=== PATIENT | female | born 1940 | race Caucasian/White ===

== ENCOUNTER 2021-08-07 10:05 | Outpatient (CLI) | payer MEDICAID, OTHER ==
--- NOTE | 2021-08-07 14:33 | XRAY Report ---
PROCEDURE: Lumbar Spine 2 View INDICATIONS: LOW BACK PAIN TECHNIQUE: 2 views of the lumbar spine were acquired. COMPARISON: None. FINDINGS: Bones: 5 [id number] vertebrae are present. There is trace retrolisthesis of L1 on L2, L2 on L3 , trace anterolisthesis of L4 on L5. Multilevel moderate to severe disc space narrowing is present. T here is severe foraminal narrowing at L2-3, L3-4 and L5-S1, moderate L4-5. Multilevel anterior osteop hytes are present. No vertebral body compression fractures. No suspicious bony lesions. Soft tissues: Overlying bowel gas pattern is normal. No suspicious soft tissue calcifications. IMPRESSION: Prominent multilevel degenerative changes as above. Reviewed by: Fela White MD on 08/07/2021 2:31 PM PDT Approved by: Fela White MD on 08/07/2021 2:31 PM PDT Station ID: [id number]
== END 2021-08-07 10:06 | disposition home or self-care (01) ==
LOC: DI.N 10:05
PROVIDERS: ATTEND Nurse Practitioner
DX: M47.816 Spondylosis without myelopathy or radiculopathy, lumbar region (principal)

== ENCOUNTER 2022-06-16 12:01 | Outpatient (CLI) | payer MEDICARE ==
[2022-06-16 18:13] LABS: BASOPHILS # (AUTO) 0.1 10^3/uL (0.0-0.1); BASOPHILS % (AUTO) 0.8 %; EOSINOPHILS # (AUTO) 0.2 10^3/uL (0.0-0.7); EOSINOPHILS % (AUTO) 1.9 %; HCT - HEMATOCRIT 40.5 % (37.0-47.0); HGB - HEMOGLOBIN 12.4 g/dL (12.0-16.0); LYMPHOCYTES # (AUTO) 2.9 10^3/uL (1.5-3.5); LYMPHOCYTES % (AUTO) 34.3 %; MEAN CORPUSCULAR HGB CONC 30.6 g/dL (32.0-36.0); MEAN CORPUSCULAR VOLUME 88.2 fL (81.0-99.0); MEAN PLATELET VOLUME 10.7 fL (7.9-10.8); MONOCYTES # (AUTO) 0.7 10^3/uL (0.0-1.0); NEUTROPHILS # (AUTO) 4.6 10^3/uL (1.5-6.6); NEUTROPHILS % (AUTO) 54.8 %; PLT - PLATELET COUNT 311 10^3/uL (130-450); RED BLOOD COUNT 4.59 10^6/uL (4.20-5.40); RED CELL DISTRIBUTION WIDTH 16.4 % (12.0-15.0); WHITE BLOOD COUNT 8.4 x10^3/uL (4.8-10.8)
[2022-06-16 18:31] LABS: ALBUMIN 3.4 g/dL (3.2-5.5); ALKALINE PHOSPHATASE 90 IU/L (42-121); ALT ALANINE AMINOTRANSFERASE 14 IU/L (10-60); AST ASPARTATE AMINOTRANSFERASE 19 IU/L (10-42); BILIRUBIN,TOTAL 0.7 mg/dL (0.2-1.0); BUN - BLOOD UREA NITROGEN 27 mg/dL (6-20); CALCIUM 9.1 mg/dL (8.5-10.3); CARBON DIOXIDE - CO2 28 mmol/L (21-32); CHLORIDE 106 mmol/L (101-111); CHOL/HDL RATIO 2.3 (<4.4); CHOLESTEROL 123 mg/dL; CREATININE 1.5 mg/dL (0.4-1.0); GFR - MDRD 33 (>89); GLUCOSE 131 mg/dL (70-100); HDL CHOLESTEROL 53 mg/dL; LDL CHOLESTEROL,CALCULATED 61 mg/dL; LDL/HDL RATIO 1.2 (<4.4); SODIUM 139 mmol/L (135-145); TOTAL PROTEIN 6.9 g/dL (6.7-8.2); TRIGLYCERIDES 47 mg/dL; VLDL CHOLESTEROL 9 mg/dL
[2022-06-16 18:43] LABS: THYROID STIMULATING HORMONE 2.45 uIU/mL (0.34-5.60)
== END 2022-06-16 12:02 | disposition home or self-care (01) ==
LOC: LAB.N 12:01
PROVIDERS: ATTEND Nurse Practitioner
DX: I10 Essential (primary) hypertension (principal); E78.5 Hyperlipidemia, unspecified; R06.02 Shortness of breath; I48.21 Permanent atrial fibrillation
CPT/HCPCS: 36415; 80053; 80061; 83721; 83880; 84443; 85025

== ENCOUNTER 2022-07-14 08:02 | Emergency (ER) | payer MEDICARE ==
[2022-07-14 08:47] LABS: BASOPHILS # (AUTO) 0.1 10^3/uL (0.0-0.1); BASOPHILS % (AUTO) 1.5 %; EOSINOPHILS # (AUTO) 0.2 10^3/uL (0.0-0.7); EOSINOPHILS % (AUTO) 3.9 %; HCT - HEMATOCRIT 38.8 % (37.0-47.0); HGB - HEMOGLOBIN 11.7 g/dL (12.0-16.0); LYMPHOCYTES % (AUTO) 36.7 %; MEAN CORPUSCULAR HEMOGLOBIN 26.5 pg (27.0-31.0); MEAN CORPUSCULAR HGB CONC 30.2 g/dL (32.0-36.0); MEAN CORPUSCULAR VOLUME 87.8 fL (81.0-99.0); MEAN PLATELET VOLUME 10.3 fL (7.9-10.8); MONOCYTES # (AUTO) 0.4 10^3/uL (0.0-1.0); MONOCYTES % (AUTO) 7.5 %; NEUTROPHILS # (AUTO) 2.7 10^3/uL (1.5-6.6); PLT - PLATELET COUNT 256 10^3/uL (130-450); RED BLOOD COUNT 4.42 10^6/uL (4.20-5.40); RED CELL DISTRIBUTION WIDTH 15.6 % (12.0-15.0); WHITE BLOOD COUNT 5.3 x10^3/uL (4.8-10.8)
[2022-07-14 09:08] LABS: ALBUMIN 3.2 g/dL (3.2-5.5); ALBUMIN/GLOBULIN RATIO 1.1 (1.0-2.2); BILIRUBIN,TOTAL 0.8 mg/dL (0.2-1.0); CALCIUM 8.8 mg/dL (8.5-10.3); CREATININE 1.1 mg/dL (0.4-1.0); POTASSIUM 3.9 mmol/L (3.5-5.0); TOTAL PROTEIN 6.2 g/dL (6.7-8.2)
--- NOTE | 2022-07-14 09:12 | ED Physician Documentation ---
PD HPI CHEST PAIN - Stated complaint Stated Complaint: LT SIDE PX - Chief complaint Chief Complaint: Cardiac - History obtained from History obtained from: Patient, Family - Additional information Additional information: The patient comes to the emergency department chief complaint of pain under her left breast for about 4 days. She states that it happened when she reached down to get a bone for her dog. She is felt a sudden pop under her left breast and an electrical sensation that shot around her left rib cage. She states has been sore ever since and seem to be getting better but was worse today. She states it hurts to take a deep breath and sometimes the pain makes it makes her catch her breath. She has not been sick with anything. No cough, fevers, or chills. She has a history of congestive heart failure and had an echo a few years ago which showed an EF of 45%. She has had fluctuating edema in her lower extremities. No other complaints at this time. No coronary artery disease. PD PAST MEDICAL HISTORY - Past Medical History Past Medical History: Yes Cardiovascular: Congestive heart failure, Hypertension, High cholesterol, Atrial fibrillation, Arrhythmia - Past Surgical History Past Surgical History: No - Present Medications Home Medications: Ambulatory Orders Medication Instructions Recorded Confirmed Apixaban [Eliquis] 5 mg PO DAILY 07/14/22 07/14/22 Atorvastatin Calcium 40 mg PO DAILY 07/14/22 07/14/22 Escitalopram Oxalate 20 mg PO DAILY 07/14/22 07/14/22 Metoprolol Succinate 100 mg PO DAILY 07/14/22 07/14/22 Potassium Chloride [Klor-Con 10] 10 meq PO DAILY 07/14/22 07/14/22 lisinopriL [Zestril] 5 mg PO DAILY 07/14/22 07/14/22 - Allergies Allergies/Adverse Reactions: Allergies Allergy/AdvReac Type Severity Reaction Status Date / Time inositol niacinate AdvReac Rash Verified 07/14/22 08:24 [From Niacin No Flush] niacin [From Niacin No Flush] AdvReac Rash Verified 07/14/22 08:24 - Social History Does the pt smoke?: No Smoking Status: Never smoker Does the pt drink ETOH?: No PD ED PE NORMAL - Vitals Vital signs reviewed: Yes - General General: Alert and oriented X 3, No acute distress, Well developed/nourished - HEENT HEENT: Atraumatic, PERRL, EOMI, Moist mucous membranes - Neck Neck: Supple, no meningeal sign - Cardiac Cardiac: RRR, No murmur, Strong equal pulses - Respiratory Respiratory: No respiratory distress, Clear bilaterally, Other (Reproducible chest wall tenderness around the mid clavicular line seventh rib area under her left breast. No deformity, step-off, or crepitus) - Abdomen Abdomen: Soft, Non tender, Non distended - Derm Derm: Warm and dry - Extremities Extremities: No deformity, No edema (Moderate bilateral lower extremity edema) - Neuro Neuro: Alert and oriented X 3 - Psych Psych: Normal mood, Normal affect Results - Vitals Vitals: Vital Signs - 24 hr 07/14/22 07/14/22 08:10 08:49 Temperature 36.6 C Heart Rate 90 89 Respiratory 20 18 Rate Blood Pressure 157/117 H 129/73 O2 Saturation 99 97 Oxygen O2 Source Room air - Labs Labs: Laboratory Tests 07/14/22 07/14/22 07/14/22 08:39 08:39 08:39 WBC 5.3 RBC 4.42 Hgb 11.7 L Hct 38.8 MCV 87.8 MCH 26.5 L MCHC 30.2 L RDW 15.6 H Plt Count 256 MPV 10.3 Neut # (Auto) 2.7 Lymph # (Auto) 2.0 [place] # (Auto) 0.4 Eos # (Auto) 0.2 Baso # (Auto) 0.1 Absolute Nucleated RBC 0.00 Nucleated RBC % 0.0 Sodium 141 Potassium 3.9 Chloride 105 Carbon Dioxide 27 Anion Gap 9.0 BUN 19 Creatinine 1.1 H Estimated GFR (MDRD) 48 L Glucose 125 H Calcium 8.8 Total Bilirubin 0.8 AST 16 ALT 11 Alkaline Phosphatase 81 Troponin I High Sens 6.9 Total Protein 6.2 L Albumin 3.2 Globulin 3.0 Albumin/Globulin Ratio 1.1 Lipase 31 - Rads (name of study) Chest x-ray Relevant Findings:: Final report received, See rad report (Some cardiomegaly, no pulmonary edema) PD Medical Decision Making - ED course Complexity details: reviewed results, re-evaluated patient, considered differential, d/w patient, d/w family ED course: The patient was worked up with laboratory studies including CBC and ER abdominal panel with troponin, which were ordered and reviewed by me and found to be negative. EKG was ordered and reviewed by me and unremarkable. Her chest x-ray was read by the radiologist and she was found of some cardiomegaly but no pulmonary edema. I felt the patient was stable for discharge home. I discussed with her that she is most likely strained her chest wall and that this will get better on its own. We discussed the usual indications for return. The patient is accompanied by her son. Departure - Departure Disposition: Home, Self Care Clinical Impression: Strain of chest wall Qualifiers: Encounter type: initial encounter Qualified Code(s): S29.011A - Strain of muscle and tendon of front wall of thorax, initial encounter Condition: Stable Instructions: ED Strain Chest Wall Comments: Your labs, EKG, and chest x-ray all look good. There is no evidence of a rib fracture, heart attack, or exacerbation of your congestive heart failure. You may take ibuprofen and Tylenol if needed for the chest wall pain. You may also apply ice and heat as needed. This will get better on its own in the next few weeks.
--- NOTE | 2022-07-14 09:22 | XRAY Report ---
PROCEDURE: Chest 1 View X-Ray INDICATIONS: Chest pain TECHNIQUE: One view of the chest was acquired. COMPARISON: None. FINDINGS: Surgical changes and devices: None. Lungs and pleura: No pleural effusions or pneumothorax. Lungs are clear. Mediastinum: Mediastinal contours appear normal. Cardiomegaly. Bones and chest wall: No suspicious bony lesions. Overlying soft tissues appear unremarkable. IMPRESSION: Cardiomegaly. No evidence acute pulmonary process. Reviewed by: Carlos Rojas MD on 07/14/2022 9:21 AM PDT Approved by: Carlos Rojas MD on 07/14/2022 9:21 AM PDT Station ID: [id number]
[2022-07-14 09:34] VITALS: BP 136/77
== END 2022-07-14 09:40 | disposition home or self-care (01) ==
LOC: ED 08:02
DX: S92.011A Displaced fracture of body of right calcaneus, initial encounter for closed fracture (principal); X58.XXXA Exposure to other specified factors, initial encounter; Y93.89 Activity, other specified
CPT/HCPCS: 36415; 80053; 83690; 84484; 85025; 93005; 99283; 99284

== ENCOUNTER 2022-08-10 14:07 | Outpatient (CLI) | payer MEDICARE | END 2022-08-10 14:08 | disposition home or self-care (01) | LOC: MAC.MOP 14:07 | PROVIDERS: ATTEND Nurse Practitioner | DX: R00.2 Palpitations (principal) | CPT/HCPCS: 93246 ==

== ENCOUNTER 2022-09-03 10:30 | Outpatient (CLI) | payer MEDICARE | END 2022-09-03 10:31 | disposition home or self-care (01) | LOC: MAC.INF 10:30 | PROVIDERS: ATTEND Nurse Practitioner | DX: I48.91 Unspecified atrial fibrillation (principal); I49.3 Ventricular premature depolarization | CPT/HCPCS: 93248 ==

== ENCOUNTER 2022-12-08 12:30 | Outpatient (CLI) | payer MEDICARE | END 2022-12-08 12:45 | disposition home or self-care (01) | LOC: LAB.N 12:30 | PROVIDERS: ATTEND Nurse Practitioner | DX: R60.0 Localized edema (principal) | CPT/HCPCS: 87070; 87077; 87205 ==

== ENCOUNTER 2023-01-28 13:59 | Outpatient (CLI) | payer MEDICARE ==
--- NOTE | 2023-01-28 16:04 | DEXA Report ---
PROCEDURE: Dexa Spine and/or Hip INDICATIONS: POST MENOPAUSAL TECHNIQUE: Dual energy x-ray absorptiometry (DXA) was performed on a Superfeedr System. Regions measur ed are the AP Spine, femoral neck, and if needed forearm. COMPARISON: None FINDINGS: Lumbar Spine: Bone Mineral Density 0.968 g/cm/cm,T score -1.8. Left Femoral Neck: Bone Mineral Density 0.637 g/cm/cm, T score -2.9. Left Hip: Bone Mineral Density 0.613 g/cm/cm,T score -3.1. (T score greater or equal to -1.0: NORMAL) (T score from -1.1 to -2.4: OSTEOPENIA) (T score less than or equal to -2.5 to: OSTEOPOROSIS) Impression: By WHO criteria, this patient has osteoporosis. Patients with diagnosis of osteoporosis or osteopenia should have regular bone mineral density assess ment. For those eligible for Medicare, routine testing is allowed once every 2 years. Testing frequ ency can be increased for patients who have rapidly progressing disease or for those who are receivin g medical therapy to restore bone mass. Reviewed by: Kike Fabian MD on 01/28/2023 2:26 PM PDT Approved by: Kike Fabian MD on 01/28/2023 2:26 PM PDT Station ID: [id number]
== END 2023-01-28 14:00 | disposition home or self-care (01) ==
LOC: DI 13:59
PROVIDERS: ATTEND Nurse Practitioner
DX: M81.0 Age-related osteoporosis without current pathological fracture (principal); Z78.0 Asymptomatic menopausal state

== ENCOUNTER 2023-01-31 11:15 | Outpatient (CLI) | payer MEDICARE ==
--- NOTE | 2023-01-31 18:16 | XRAY Report ---
PROCEDURE: Knee 4 View BILAT INDICATIONS: BILAT KNEE PAIN TECHNIQUE: 4 views of the knee(s) were acquired. COMPARISON: Bilateral FINDINGS: Bones: No fractures or dislocations. No suspicious bony lesions. The bones are diffusely osteopen ic. Tricompartment osteophytes. Medial compartment [id number] joint space obliteration. Soft tissues: No knee joint effusion. No suspicious soft tissue calcifications or masses. IMPRESSION: 1. Diffuse osteopenia. 2. Bilateral degenerative arthritis of the knees, advanced in the medial compartment. Reviewed by: Carlos Rojas MD on 01/31/2023 6:15 PM PST Approved by: Carlos Rojas MD on 01/31/2023 6:15 PM PST Station ID: [id number]
== END 2023-01-31 23:59 | disposition home or self-care (01) ==
LOC: DI.WOS 11:15
PROVIDERS: ATTEND Orthopaedic Surgery
DX: M17.0 Bilateral primary osteoarthritis of knee (principal); M85.862 Other specified disorders of bone density and structure, left lower leg; M85.861 Other specified disorders of bone density and structure, right lower leg

== ENCOUNTER 2023-09-07 08:16 | Outpatient (CLI) | payer MEDICARE ==
[2023-09-07 12:25] LABS: BASOPHILS # (AUTO) 0.1 10^3/uL (0.0-0.1); BASOPHILS % (AUTO) 1.2 %; EOSINOPHILS # (AUTO) 0.3 10^3/uL (0.0-0.7); EOSINOPHILS % (AUTO) 4.4 %; HCT - HEMATOCRIT 35.3 % (37.0-47.0); HGB - HEMOGLOBIN 10.3 g/dL (12.0-16.0); LYMPHOCYTES # (AUTO) 1.9 10^3/uL (1.5-3.5); LYMPHOCYTES % (AUTO) 32.9 %; MEAN CORPUSCULAR HEMOGLOBIN 25.3 pg (27.0-31.0); MEAN CORPUSCULAR HGB CONC 29.2 g/dL (32.0-36.0); MEAN CORPUSCULAR VOLUME 86.7 fL (81.0-99.0); MEAN PLATELET VOLUME 10.9 fL (7.9-10.8); MONOCYTES # (AUTO) 0.5 10^3/uL (0.0-1.0); MONOCYTES % (AUTO) 8.3 %; PLT - PLATELET COUNT 294 10^3/uL (130-450); RED BLOOD COUNT 4.07 10^6/uL (4.20-5.40); RED CELL DISTRIBUTION WIDTH 16.2 % (12.0-15.0); WHITE BLOOD COUNT 5.7 x10^3/uL (4.8-10.8)
[2023-09-07 12:45] LABS: ALBUMIN 3.5 g/dL (3.2-5.5); ALBUMIN/GLOBULIN RATIO 1.3 (1.0-2.2); ALKALINE PHOSPHATASE 90 IU/L (42-121); ALT ALANINE AMINOTRANSFERASE 5 IU/L (10-60); AST ASPARTATE AMINOTRANSFERASE 11 IU/L (10-42); BILIRUBIN,TOTAL 0.6 mg/dL (0.2-1.0); BUN - BLOOD UREA NITROGEN 18 mg/dL (6-20); CALCIUM 9.4 mg/dL (8.5-10.3); CARBON DIOXIDE - CO2 30 mmol/L (21-32); CHLORIDE 107 mmol/L (101-111); CHOL/HDL RATIO 2.5 (<4.4); CHOLESTEROL 111 mg/dL; GFR - MDRD 53 (>89); GLUCOSE 127 mg/dL (74-104); HDL CHOLESTEROL 44 mg/dL; LDL CHOLESTEROL,CALCULATED 54 mg/dL; LDL/HDL RATIO 1.2 (<4.4); POTASSIUM 3.9 mmol/L (3.5-4.5); SODIUM 140 mmol/L (135-145); TOTAL PROTEIN 6.2 g/dL (6.4-8.9); TRIGLYCERIDES 67 mg/dL (48-352); VLDL CHOLESTEROL 13 mg/dL
[2023-09-07 12:55] LABS: THYROID STIMULATING HORMONE 2.68 uIU/mL (0.34-5.60)
[2023-09-07 21:55] LABS: ABSOLUTE RETICS # AUTO 0.055 10^6/uL (0.020-0.110); RED BLOOD COUNT 4.09 10^6/uL (4.20-5.40); RETICULOCYTE COUNT % (AUTO) 1.34 % (0.5-2.3)
[2023-09-07 22:13] LABS: FERRITIN 15.5 ng/mL (11.0-306.8)
== END 2023-09-07 08:17 | disposition home or self-care (01) ==
LOC: LAB.N 08:16
PROVIDERS: ATTEND Nurse Practitioner
DX: I10 Essential (primary) hypertension (principal); E78.5 Hyperlipidemia, unspecified; R53.83 Other fatigue; I48.21 Permanent atrial fibrillation; D64.9 Anemia, unspecified
CPT/HCPCS: 36415; 80053; 80061; 82607; 82728; 82746; 83540; 83721; 84443; 84466; 85025; 85045

== ENCOUNTER 2023-09-07 08:23 | Outpatient (CLI) | payer MEDICARE ==
--- NOTE | 2023-09-07 09:49 | XRAY Report ---
PROCEDURE: Lumbar Spine 2-3V INDICATIONS: LOW BACK PAIN, CHRONIC TECHNIQUE: 3 views of the lumbar spine were acquired. COMPARISON: None. FINDINGS: Surgical change: Surgical clips project over the right upper quadrant. Bones: 5 [id number]-oci-[id number] vertebrae are present. Grade 1 anterolisthesis of L4 on L5. Severe disc hei ght loss at L3-4, L2-3 and L1-2, and moderate disc height loss at remaining levels. Diffuse facet art hrosis. No vertebral body compression fractures. No suspicious bony lesions. Slight leftward curvatu re of the spine. Soft tissues: Overlying bowel gas pattern is normal. No suspicious soft tissue calcifications. IMPRESSION: Moderate to severe, multilevel degenerative disc disease and diffuse facet arthrosis. No displaced fracture or traumatic subluxation. Reviewed by: Williams Jonas MD on 09/07/2023 9:48 AM PDT Approved by: Williams Jonas MD on 09/07/2023 9:48 AM PDT Station ID: [id number]
--- NOTE | 2023-09-07 09:49 | XRAY Report ---
PROCEDURE: Hip w/Pelvis 2-3V RT INDICATIONS: HIP JOINT PAIN, RIGHT TECHNIQUE: 2 views of the hip were acquired. COMPARISON: None. FINDINGS: Bones: No fractures or dislocations. No suspicious bony lesions. Nonuniform joint space narrowing with osteophytic lipping of the acetabulum. Soft tissues: No suspicious soft tissue calcifications or masses. IMPRESSION: No acute bony abnormality. If there remains a high clinical concern for fracture, consider cross-sect ional imaging now. If pain persists, consider repeat x-ray in 10-14 days or cross-sectional imaging. Mild hip osteoarthritis. Reviewed by: Williams Jonas MD on 09/07/2023 9:48 AM PDT Approved by: Williams Jonas MD on 09/07/2023 9:48 AM PDT Station ID: [id number]
--- NOTE | 2023-09-07 09:50 | XRAY Report ---
PROCEDURE: Knee 4+V RT INDICATIONS: KNEE PAIN, RIGHT TECHNIQUE: 4 views of the knee(s) were acquired. COMPARISON: None. FINDINGS: Bones: No fractures or dislocations. No suspicious bony lesions. Tricompartmental joint space david rowing with associated osteophytosis. Subchondral cystic change and sclerosis of the medial tibiofemo ral compartment. Soft tissues: No knee joint effusion. No suspicious soft tissue calcifications or masses. IMPRESSION: No acute bony abnormality. Moderate to severe tricompartmental osteoarthritis. Kellgren-Jacob scale of osteoarthritis: 2-3. Reviewed by: Williams Jonas MD on 09/07/2023 9:49 AM PDT Approved by: Williams Jonas MD on 09/07/2023 9:49 AM PDT Station ID: [id number]
== END 2023-09-07 08:24 | disposition home or self-care (01) ==
LOC: DI.N 08:23
PROVIDERS: ATTEND Nurse Practitioner
DX: M51.36 Other intervertebral disc degeneration, lumbar region (principal); M47.816 Spondylosis without myelopathy or radiculopathy, lumbar region; M16.11 Unilateral primary osteoarthritis, right hip; M17.11 Unilateral primary osteoarthritis, right knee

== ENCOUNTER 2023-09-12 08:00 | Outpatient (CLI) | payer MEDICARE ==
[2023-09-12 12:37] LABS: BILIRUBIN,URINE NEGATIVE (NEGATIVE); GLUCOSE, URINE (UA) NEGATIVE (NEGATIVE); KETONES,URINE (UA) NEGATIVE (NEGATIVE); LEUKOCYTE ESTERASE, URINE NEGATIVE (NEGATIVE); NITRITE,URINE POSITIVE (NEGATIVE); OCCULT BLOOD,URINE NEGATIVE (NEGATIVE); PROTEIN,URINE NEGATIVE (NEGATIVE); UROBILINOGEN,URINE 0.2 (NORMAL) E.U./dL (NORMAL)
[2023-09-12 12:38] LABS: CLARITY,URINE CLEAR (CLEAR)
[2023-09-12 12:43] LABS: BACTERIA,URINE Moderate /HPF (None Seen); RBC,URINE 0-5 /HPF (0-5); SQUAMOUS EPITHELIAL CELL,UR FEW Squamous (<= Few)
[2023-09-12 14:48] LABS: FECAL OCCULT BLOOD (FIT) NEGATIVE (NEGATIVE)
== END 2023-09-12 23:59 | disposition home or self-care (01) ==
LOC: LAB.N 08:00
PROVIDERS: ATTEND Nurse Practitioner
DX: D64.9 Anemia, unspecified (principal)
CPT/HCPCS: 81001; 82274

== ENCOUNTER 2023-09-24 13:35 | Emergency (ER) | payer MEDICARE ==
[2023-09-24] MEDS: HYDROmorphone 1 MG/ML CARPUJECT IM STA (14:10)
--- NOTE | 2023-09-24 15:10 | XRAY Report ---
PROCEDURE: Tib/Fib RT INDICATIONS: fall with prox tibial/knee pain TECHNIQUE: 2 views of the tibia and fibula were acquired. COMPARISON: None. FINDINGS: Bones: Knee findings are separately dictated. No acute displaced fracture of the tibia or fibular sh afts. Partially seen knee and ankle degenerative changes. Soft tissues: There is soft tissue swelling diffusely. IMPRESSION: No acute displaced fracture of the tibial or fibular shafts. Partially seen knee and ankle degenerati ve changes. Distal femur fracture findings are separately dictated. Reviewed by: Smooth Hull MD on 09/24/2023 3:09 PM PDT Approved by: Smooth Hull MD on 09/24/2023 3:09 PM PDT Station ID: [id number]
--- NOTE | 2023-09-24 15:16 | XRAY Report ---
PROCEDURE: Knee 3V RT INDICATIONS: knee pain from fall TECHNIQUE: 3 views of the knee(s) were acquired. COMPARISON: 09/07/2023 FINDINGS: Bones: Mildly displaced and comminuted fracture of the distal femur. Diffusely decreased osseous min eralization. Redemonstration of degenerative changes of the knee. No suspicious bony lesions. Soft tissues: Small knee joint effusion. No suspicious soft tissue calcifications or masses. IMPRESSION: Displaced and comminuted distal femoral fracture. Reviewed by: Kike Fabian MD on 09/24/2023 2:15 PM AN[place]IE Approved by: Kike Fabian MD on 09/24/2023 2:15 PM ANNAMARIE Station ID: [id number]
[2023-09-24 15:34] LABS: BASOPHILS # (AUTO) 0.1 10^3/uL (0.0-0.1); BASOPHILS % (AUTO) 0.6 %; EOSINOPHILS # (AUTO) 0.2 10^3/uL (0.0-0.7); EOSINOPHILS % (AUTO) 1.1 %; HCT - HEMATOCRIT 31.4 % (37.0-47.0); HGB - HEMOGLOBIN 9.3 g/dL (12.0-16.0); LYMPHOCYTES # (AUTO) 1.7 10^3/uL (1.5-3.5); LYMPHOCYTES % (AUTO) 11.8 %; MEAN CORPUSCULAR HEMOGLOBIN 25.1 pg (27.0-31.0); MEAN CORPUSCULAR HGB CONC 29.6 g/dL (32.0-36.0); MEAN CORPUSCULAR VOLUME 84.9 fL (81.0-99.0); MEAN PLATELET VOLUME 9.9 fL (7.9-10.8); MONOCYTES # (AUTO) 0.8 10^3/uL (0.0-1.0); MONOCYTES % (AUTO) 5.7 %; NEUTROPHILS # (AUTO) 11.4 10^3/uL (1.5-6.6); NEUTROPHILS % (AUTO) 80.4 %; PLT - PLATELET COUNT 275 10^3/uL (130-450); RED CELL DISTRIBUTION WIDTH 15.7 % (12.0-15.0); WHITE BLOOD COUNT 14.2 x10^3/uL (4.8-10.8)
[2023-09-24] MEDS: HYDROmorphone 1 MG/ML CARPUJECT IVP STA (15:34)
[2023-09-24] MEDS: KETOROLAC 15 MG/ML VIAL IVP STA (15:35)
[2023-09-24 15:43] LABS: PARTIAL THROMBOPLASTIN TIME 27.1 secs (24.9-33.3)
[2023-09-24 15:48] LABS: ALBUMIN 3.4 g/dL (3.2-5.5); ALBUMIN/GLOBULIN RATIO 1.3 (1.0-2.2); BILIRUBIN,TOTAL 0.6 mg/dL (0.2-1.0); CALCIUM 9.1 mg/dL (8.5-10.3); CREATININE 1.3 mg/dL (0.6-1.3); INR 1.7 (0.8-1.2); POTASSIUM 3.9 mmol/L (3.5-4.5); PT - PROTHROMBIN TIME 17.5 secs (9.9-12.6)
--- NOTE | 2023-09-24 17:34 | ED Physician Documentation ---
PD HPI LOWER EXT INJURY - Stated complaint Stated Complaint: RT KNEE PX - Chief complaint Chief Complaint: Trauma Ext - History obtained from History obtained from: Patient - History of Present Illness PD HPI LOW EXT INJURY LOCATION: Right, Knee Type of injury: Fall (She states she stepped in an uneven ground with her right ankle twisting and causing her to twist her knee which ended up underneath her with pain. Some contusion to the left ankle area. Denies hitting her head or trunk.), Twist Where injury occurred: Home Timing - onset: How many minutes ago (30), Today Timing - details: Abrupt onset, Still present (She did not make any attempts for standing as the pain was too much. Noticing swelling around the knee abruptly. No headache or chest pain. She states that of a twisting slow fall.) Pain level max: 8 Pain level now: 8 Improved by: Immobilization Worsened by: Moving, Palpating Associated symptoms: Swelling. No: Weakness, Numbness Contributing factors: Anticoagulated (for atrial fib) Review of Systems Constitutional: denies: Fever, Chills Nose: denies: Rhinorrhea / runny nose, Congestion Throat: denies: Sore throat Respiratory: denies: Cough GI: denies: Abdominal Pain, Nausea, Vomiting Skin: denies: Abrasion (s), Laceration (s) Neurologic: denies: Focal weakness, Numbness PD PAST MEDICAL HISTORY - Past Medical History Past Medical History: Yes Cardiovascular: Congestive heart failure, Hypertension, High cholesterol, Atrial fibrillation, Arrhythmia Respiratory: None Neuro: None Endocrine/Autoimmune: None GI: Diverticulitis HADOOP DEVELOPER: None : None HEENT: None Psych: None Musculoskeletal: Osteoarthritis Derm: None - Past Surgical History Past Surgical History: No - Present Medications Home Medications: Ambulatory Orders Medication Instructions Recorded Confirmed Apixaban [Eliquis] 5 mg PO BID 07/14/22 09/24/23 Atorvastatin Calcium 40 mg PO DAILY 07/14/22 09/24/23 Escitalopram Oxalate 20 mg PO DAILY 07/14/22 09/24/23 Metoprolol Succinate 100 mg PO DAILY 07/14/22 09/24/23 Potassium Chloride [Klor-Con 10] 10 meq PO DAILY 07/14/22 09/24/23 lisinopriL [Zestril] 5 mg PO DAILY 07/14/22 09/24/23 Cholecalciferol [Vitamin D3] 25 mcg PO DAILY 09/24/23 09/24/23 - Allergies Allergies/Adverse Reactions: Allergies Allergy/AdvReac Type Severity Reaction Status Date / Time inositol niacinate AdvReac Rash Verified 09/24/23 13:44 [From Niacin No Flush] niacin [From Niacin No Flush] AdvReac Rash Verified 09/24/23 13:44 - Social History Does the pt smoke?: No Smoking Status: Never smoker Does the pt drink ETOH?: No Does the pt have substance abuse?: No - Immunizations Immunizations are current?: Yes - POLST Patient has POLST: No PD ED PE NORMAL - Vitals Vital signs reviewed: Yes (hi BMI. ) - General General: Alert and oriented X 3, No acute distress, Well developed/nourished - HEENT HEENT: Atraumatic - Neck Neck: Supple, no meningeal sign, No bony TTP - Cardiac Cardiac: RRR, No murmur - Respiratory Respiratory: No respiratory distress, Clear bilaterally, Other (no chestwall tenderness.) - Abdomen Abdomen: Soft, Non tender - Back Back: No spinal TTP - Derm Derm: Normal color, Warm and dry - Extremities Extremities: Other (Distal sensation and pulses are good in the foot and ankle. There is obvious swelling noted around the knee and both suprapatellar and infrapatellar. Pain is elicited at the distal femur with any slight motion. The hip itself does not feel tender. The ankle is not tender.) - Neuro Neuro: Alert and oriented X 3, No motor deficit, No sensory deficit, Normal speech Results - Vitals Vitals: Vital Signs - 24 hr 09/24/23 09/24/23 09/24/23 13:44 14:13 17:30 Temperature 36.9 C Heart Rate 92 93 89 Respiratory 20 18 16 Rate Blood Pressure 102/43 L 119/67 74/53 L O2 Saturation 97 98 93 09/24/23 18:21 Temperature Heart Rate 105 H Respiratory 16 Rate Blood Pressure 95/62 O2 Saturation 93 Oxygen O2 Source Room air - Labs Labs: Laboratory Tests 09/24/23 09/24/23 09/24/23 15:30 15:30 15:30 WBC 14.2 H RBC 3.70 L Hgb 9.3 L Hct 31.4 L MCV 84.9 MCH 25.1 L MCHC 29.6 L RDW 15.7 H Plt Count 275 MPV 9.9 Neut # (Auto) 11.4 H Lymph # (Auto) 1.7 [place] # (Auto) 0.8 Eos # (Auto) 0.2 Baso # (Auto) 0.1 Absolute Nucleated RBC 0.00 Nucleated RBC % 0.0 PT 17.5 H INR 1.7 H APTT 27.1 Sodium 139 Potassium 3.9 Chloride 105 Carbon Dioxide 28 Anion Gap 6.0 BUN 18 Creatinine 1.3 Estimated GFR (MDRD) 39 L Glucose 152 H Calcium 9.1 Total Bilirubin 0.6 AST 11 ALT 7 L Alkaline Phosphatase 87 Total Protein 6.0 L Albumin 3.4 Globulin 2.6 Albumin/Globulin Ratio 1.3 Lipase 14 09/24/23 17:41 WBC RBC Hgb 8.4 L Hct 28.8 L MCV MCH MCHC RDW Plt Count MPV Neut # (Auto) Lymph # (Auto) [place] # (Auto) Eos # (Auto) Baso # (Auto) Absolute Nucleated RBC Nucleated RBC % PT INR APTT Sodium Potassium Chloride Carbon Dioxide Anion Gap BUN Creatinine Estimated GFR (MDRD) Glucose Calcium Total Bilirubin AST ALT Alkaline Phosphatase Total Protein Albumin Globulin Albumin/Globulin Ratio Lipase - Rads (name of study) knee and tib/fib Relevant Findings:: Prelim report reviewed, EMP independent interpretation of test (distal femur fracture) PD Medical Decision Making - ED course Complexity details: reviewed results (distal femur fracture. Lower leg without fracture. ), considered differential, d/w patient, d/w financial services consultant (Dr. Heraclio Sky, ortho, and I sent pictures without ID info to his text, with verbal permission. ), other (Dr. Mc Alejandra, hospitalist) ED course: The patient with a distal femur fracture. She is on blood thinners and took her dose of Eliquis this morning. I would anticipate some bleeding into the thigh. There is localized swelling. Her initial blood count was 9.7 with the most recent hemoglobin 10.8. She is chronically anemic. We will recheck the blood count at an interval. She is given IV fluids. Initial blood pressure was adequate at just 102 systolic. It dipped briefly into the 90s systolic and improved with IV fluids. She does not show any symptoms of CHF. We do not have orthopedics on-call for at least 3 more days correction 2 more days and then unclear what their schedule is at that point. Given this I feel she does need transfer to a more reliable timing for care for orthopedics and general medicine. Departure - Departure Disposition: 02 Transfer Acute Care Hosp Condition: Stable Record reviewed to determine appropriate education?: Yes Forms: PCP List
[2023-09-24] MEDS: SODIUM CHLORIDE 0.9% 1,000 ML IV STA ×2 (17:44→18:55)
[2023-09-24 17:45] LABS: HCT - HEMATOCRIT 28.8 % (37.0-47.0); HGB - HEMOGLOBIN 8.4 g/dL (12.0-16.0)
[2023-09-24] MEDS: HYDROmorphone 0.5 MG/0.5 ML SYRINGE IVP STA ×2 (17:46→19:06)
[2023-09-24] MEDS ORDERED: iohexoL-300 100 ML VIAL ONE (18:29)
[2023-09-24 19:05] VITALS: BP 93/56; O2SAT 94
[2023-09-24] MEDS: LACTATED RINGERS 1,000 ML IV STA (19:07)
== END 2023-09-24 19:27 | disposition short-term general hospital (02) ==
LOC: ED 13:35
DX: S72.491A Other fracture of lower end of right femur, initial encounter for closed fracture (principal); X50.9XXA Other and unspecified overexertion or strenuous movements or postures, initial encounter; I11.0 Hypertensive heart disease with heart failure; I50.9 Heart failure, unspecified; E78.00 Pure hypercholesterolemia, unspecified; I48.91 Unspecified atrial fibrillation; Z79.01 Long term (current) use of anticoagulants; Z79.899 Other long term (current) drug therapy
CPT/HCPCS: 36415; 73562; 73590; 80053; 83690; 85014; 85018; 85025; 85610; 85730; 96361; 96372; 96374; 96375; 96376; 99284; 99285; J1170; J7120

== ENCOUNTER 2023-11-16 08:10 | Outpatient (CLI) | payer MEDICARE ==
[2023-11-16 11:58] LABS: BASOPHILS % (AUTO) 0.6 %; EOSINOPHILS # (AUTO) 0.3 10^3/uL (0.0-0.7); EOSINOPHILS % (AUTO) 4.5 %; HCT - HEMATOCRIT 34.4 % (37.0-47.0); HGB - HEMOGLOBIN 10.7 g/dL (12.0-16.0); LYMPHOCYTES # (AUTO) 1.6 10^3/uL (1.5-3.5); LYMPHOCYTES % (AUTO) 24.6 %; MEAN CORPUSCULAR HEMOGLOBIN 27.3 pg (27.0-31.0); MEAN CORPUSCULAR HGB CONC 31.1 g/dL (32.0-36.0); MEAN CORPUSCULAR VOLUME 87.8 fL (81.0-99.0); MEAN PLATELET VOLUME 11.1 fL (7.9-10.8); MONOCYTES # (AUTO) 0.5 10^3/uL (0.0-1.0); MONOCYTES % (AUTO) 7.8 %; NEUTROPHILS # (AUTO) 4.1 10^3/uL (1.5-6.6); NEUTROPHILS % (AUTO) 62.2 %; PLT - PLATELET COUNT 317 10^3/uL (130-450); RED BLOOD COUNT 3.92 10^6/uL (4.20-5.40); RED CELL DISTRIBUTION WIDTH 18.8 % (12.0-15.0); WHITE BLOOD COUNT 6.5 x10^3/uL (4.8-10.8)
[2023-11-16 12:22] LABS: ALBUMIN/GLOBULIN RATIO 1.1 (1.0-2.2); BILIRUBIN,TOTAL 0.8 mg/dL (0.2-1.0); CALCIUM 8.9 mg/dL (8.5-10.3); CREATININE 1.1 mg/dL (0.6-1.3); POTASSIUM 3.4 mmol/L (3.5-4.5); TOTAL PROTEIN 5.8 g/dL (6.4-8.9)
[2023-11-16 12:33] LABS: THYROID STIMULATING HORMONE 3.37 uIU/mL (0.34-5.60)
== END 2023-11-16 08:11 | disposition home or self-care (01) ==
LOC: LAB.N 08:10
PROVIDERS: ATTEND Nurse Practitioner
DX: D64.9 Anemia, unspecified (principal); I95.9 Hypotension, unspecified; I48.21 Permanent atrial fibrillation
CPT/HCPCS: 36415; 80053; 82607; 83615; 84443; 85025; 87040